=== PATIENT | female | born 1945 | race Caucasian/White ===

== ENCOUNTER 2018-11-17 05:28 | Day surgery (SDC) | payer OTHER, BC ==
[~2018-11-17] VITALS: Ht 172.7 cm; Wt 90.7 kg
--- NOTE | ~2018-11-17 | O ---
[facility] [place] [address] OPERATIVE REPORT Name: LOBO PATEL Room #: 150-17 [facility]..#: [id number] Admission: 11/17/18 ������������������ Attend Phys: Miguel Woods MD Discharge: ������������������ Date of : 45 Report #: [id number] THIS REPORT FOR: //name// CC: YOHANA JACOBS MD Physician staff Miguel Woods DATE OF SERVICE: 11/17/2018 PREOPERATIVE DIAGNOSIS: Bilateral upper lid ptosis with superior visual field defects both eyes. POSTOPERATIVE DIAGNOSIS: Bilateral upper lid ptosis with superior visual field defects both eyes. OPERATION PERFORMED: Bilateral upper lid functional ptosis repair. 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 ANESTHESIA: Local with IV sedation. COMPLICATIONS: None. INDICATIONS FOR PROCEDURE: This patient has bilateral upper lid ptosis with superior visual field loss both eyes. Visual field testing demonstrates dense superior visual defects. Retesting with the upper lid elevated shows an improvement in visual field loss of over 30% and in excess of 12 degrees. The current procedure is being undertaken in order to improve the patient's visual function. Informed consent was obtained to include but not limited to the risk of loss of vision, bleeding, infection, scarring, failure to improve the problem and need for further surgery, such as adjustment of lid height. DESCRIPTION OF PROCEDURE: The patient was taken to the operating room, where 2% Xylocaine with epinephrine mixed with equal parts of 0.75% Marcaine with Wydase was administered transcutaneously to each upper lid. The patient was then prepped and draped in the usual sterile fashion. An upper lid crease incision was then made bilaterally and the dissection was carried down until the orbital septum was identified. The orbital septum was then cleared and the preaponeurotic fat identified. The levator aponeurosis was then disinserted from the anterior surface of the tarsal plate and dissected free in the avascular Chawla's muscle plane. The aponeurosis was then advanced [facility] [address] [place] [address] OPERATIVE REPORT Name: LOBO PATEL Room #: 150-17 [facility]..#: [id number] Admission: 11/17/18 ������������������ Attend Phys: Miguel Woods MD Discharge: ������������������ Date of : 45 Report #: [id number] and reattached to the anterior surface of the tarsal plate with interrupted mattress 6-0 Novafil sutures on each side, adjusting for height and contour. The redundant aponeurosis was then amputated. The incision was then closed with multiple interrupted 6-0 chromic sutures that were used to recreate an upper lid crease. The skin was closed with a running 6-0 plain gut suture. The wound was then cleaned and dressed with ophthalmic antibiotic ointment followed by a Telfa pad. The patient was transported to the recovery area, having tolerated the procedure well with no anesthesia or operative complications being noted. ��������������������������������������������� ���������������������������������������� By: ��������������������������������������������� [id number] MD angie Roth
[~2018-11-17 05:28] MED LIST: CARDIZEM CD240 MG PO; CHOLESTYRAMINE378 GM PO; COREG25 MG PO; KLOR-CON 1010 MEQ PO; LASIX 40 MG TAB40 M2 PO; LIPITOR 20 MG T20 M1 PO; LOSARTAN POTASS50 MG PO; MUCINEX600 MG PO; PREVACID30 M2 PO; VITAMIN D1000 UNI2 PO
[2018-11-17 12:52] VITALS: BP 148/74
== END 2018-11-17 14:20 | disposition home or self-care (01) ==
LOC: OR 05:28 → TBA 05:28 → OR 09:53
DX: H02.413 Mechanical ptosis of bilateral eyelids (principal); H53.462 Homonymous bilateral field defects, left side; H53.461 Homonymous bilateral field defects, right side; I10 Essential (primary) hypertension; E78.5 Hyperlipidemia, unspecified; K21.9 Gastro-esophageal reflux disease without esophagitis; Z87.442 Personal history of urinary calculi; Z87.891 Personal history of nicotine dependence; Z98.41 Cataract extraction status, right eye; Z98.42 Cataract extraction status, left eye; Z98.890 Other specified postprocedural states; Z88.2 Allergy status to sulfonamides; Z79.899 Other long term (current) drug therapy
CPT/HCPCS: 50010; 50101; 50386; 50398; 51636; 56528; 56531; 62110; 62850; 70005